=== PATIENT | female | born 1985 | race Caucasian/White ===

== ENCOUNTER 2019-06-19 16:30 | Emergency (ER) | payer BC ==
[~2019-06-19] VITALS: Ht 157.5 cm; Wt 74.0 kg
[~2019-06-19 16:30] MED LIST: ASPI81TA59 PO; DOCU-131 PO; IBUP-1222 PO; IBUP100T6 PO; OXYC-302 PO; PREN1TAB52 PO
[2019-06-19 17:39] VITALS: BP 120/73
[2019-06-19 18:38] LABS: RAPID INFLUENZA A Negative (Negative); RAPID INFLUENZA B Negative (Negative)
== END 2019-06-19 19:17 | disposition home or self-care (01) ==
LOC: ED 18:27
DX: J00 Acute nasopharyngitis [common cold] (principal); B97.89 Other viral agents as the cause of diseases classified elsewhere
CPT/HCPCS: 71046; 87081; 87400; 87880; 93005; 99284